=== PATIENT | female | born 1930 | race Caucasian/White ===

== ENCOUNTER 2016-09-14 12:43 | Emergency (ER) | payer MEDICARE, OTHER ==
--- NOTE | 2016-09-14 12:52 | EDM.PDOC ---
[id number] by Provider: 09/14/16 12:52 Source of Information: Reports: Patient, EMS History Limitations: Reports: No Limitations - History of Present Illness INITIAL COMMENTS - FREE TEXT/NARRATIVE: Edy 85 yo who was brought to the ER by EMS after she was found to have ^^ BP. Was found to have BP 222/113. She denied any symptoms and was wondering why she was brought to the ER. At baseline, she takes Amlodipine 5mg as well as 40 mg Lasix. She endorsed compliance with medications. Was brought to the ER for further evaluation. - Related Data Allergies Allergy/AdvReac Type Severity Reaction Status Date / Time No Known Allergies Allergy Verified 09/14/16 13:05 Home Meds: Home Meds Aspirin [Halfprin] 81 mg PO DAILY 09/14/16 [History] Furosemide [Lasix] 40 mg PO BID 09/14/16 [History] Losartan [Cozaar] 50 mg PO DAILY #30 tablet 09/14/16 [Rx] Potassium Chloride 10 meq PO DAILY 09/14/16 [History] Ranitidine HCl [Zantac] 150 mg PO BID 09/14/16 [History] Sotalol [Betapace] 80 mg PO BID 09/14/16 [History] amLODIPine [Norvasc] 5 mg PO DAILY #30 tab 09/14/16 [Rx] ED ROS GENERAL - Review of Systems Review Of Systems: ROS reveals no pertinent complaints other than HPI. ED EXAM, GENERAL - Physical Exam Exam: See Below Exam Limited By: No Limitations General Appearance: Alert, WD/WN, No Apparent Distress Eye Exam: Bilateral Eye: EOMI Nose: Normal Inspection, Normal Mucosa, No Blood Throat/Mouth: Normal Inspection, Normal Lips, Normal Teeth, Normal Gums, Normal Oropharynx Neck: Normal Inspection, Supple Respiratory/Chest: No Respiratory Distress, Lungs Clear, Normal Breath Sounds Cardiovascular: Normal Peripheral Pulses, Regular Rate, Rhythm, No JVD, No Murmur, Other (Bilateral Lower extremity edema) GI/Abdominal: Normal Bowel Sounds, Soft, Non-Tender, No Organomegaly, No Distention, No Abnormal Bruit Back Exam: Normal Inspection, Full Range of Motion Neurological: Alert, Oriented, CN II-XII Intact, Normal Cognition Psychiatric: Normal Affect, Normal Mood Skin Exam: Warm, Dry, Intact Course - Vital Signs Last Recorded V/S: Last Vital Signs Temp 36.6 C 09/14/16 14:26 Pulse 81 09/14/16 14:26 Resp 14 09/14/16 14:26 BP 143/62 H 09/14/16 14:50 Pulse Ox 98 09/14/16 14:26 - Orders/Labs/Meds Labs: Laboratory Tests 09/14/16 09/14/16 09/14/16 Range/Units 13:05 13:05 13:05 WBC 8.4 (4.5-12.0) X10-3/uL RBC 5.19 (3.23-5.20) x10(6)uL Hgb 15.4 (11.5-15.5) g/dL Hct 46.2 (30.0-51.3) % MCV 89.1 (80-96) fL MCH 29.7 (27.7-33.6) pg MCHC 33.4 (32.2-35.4) g/dL RDW 12.8 (11.5-15.5) % Plt Count 306 (125-369) X10(3)uL Sodium 139 (135-145) mmol/L Potassium 3.0 L (3.5-5.3) mmol/L Chloride 96 L (100-110) mmol/L Carbon Dioxide 33 H (23-29) mmol/L BUN 13 (8-23) mg/dL Creatinine 0.9 (0.6-1.3) mg/dL Est Cr Clr Drug Dosing 32.23 mL/min Estimated GFR (MDRD) 59 L (>60) BUN/Creatinine Ratio 14.4 (9-20) Glucose 130 H (80-116) mg/dL Calcium 9.7 (8.6-10.2) mg/dL Total Bilirubin 1.3 (0.1-1.3) mg/dL AST 24 (5-27) IU/L ALT 16 (14-26) IU/L Alkaline Phosphatase 102 (56-112) IU/L B-Natriuretic Peptide 249 H (0-100) pg/mL Total Protein 7.5 (6.0-8.0) g/dL Albumin 4.2 (3.2-4.6) g/dL Globulin 3.3 g/dL Albumin/Globulin Ratio 1.3 Meds: Medications Discontinued Medications Generic Name Dose Route Start Last Admin Trade Name Freq PRN Reason Stop Dose Admin Amlodipine Besylate 5 mg 09/14/16 14:44 09/14/16 14:50 Norvasc PO 09/14/16 14:45 5 mg ONETIME ONE Administration Hydralazine HCl 10 mg 09/14/16 12:54 09/14/16 13:06 Apresoline IVPUSH 09/14/16 12:55 10 mg ONETIME ONE Administration Losartan Potassium 50 mg 09/14/16 14:44 09/14/16 14:50 Cozaar PO 09/14/16 14:45 50 mg ONETIME ONE Administration Potassium Chloride 40 meq 09/14/16 13:48 09/14/16 14:11 Klor-Con M20 PO 09/14/16 13:49 40 meq ONETIME ONE Administration Sodium Chloride 10 ml 09/14/16 13:04 09/14/16 13:05 Saline Flush FLUSH 10 ml ASDIRECTED PRN Administration Keep Vein Open BP improved after IB Hydralazine. Found to have Hypokalemia -- 3.0 which was replaced. D/w Patients son (Physician in [place]) -- gave more hx. Patient was well controlled on Losartan and Amlodipine. Unsure why initial Home medication was discontinued. We agreed that she could go back temporarily on Losartan and Amlodipine. Discharged in stable condition. >>>Indications for emergent return were discussed and no Learning barriers encountered Departure - Departure Time of Disposition: 14:48 Disposition: Home, Self-Care 01 Condition: Good Clinical Impression: Hypertension - Discharge Information Prescriptions: Losartan [Cozaar] 50 mg PO DAILY #30 tablet amLODIPine [Norvasc] 5 mg PO DAILY #30 tab Instructions: Hypertension, [id number] Referrals: Kaz Roberts MD [Primary Care Provider] - Forms: ED Department Discharge Additional Instructions: Follow with PCP in 1-2 days for BP re evaluation and optimization of antihypertensives Return if symptoms worsen Call your Physician or Return to Emergency Department if: * Your condition worsens in any way. * You develop fever greater than 100.4. * You have vomitting that does not stop with medications. * You have pain that is not controlled with medications.
[2016-09-14] MEDS ORDERED: hydrALAZINE 20 MG/ML SDV IVPUSH ONE (12:54)
[2016-09-14] MEDS ORDERED: Sodium Chloride 0.9% 10 ML Syringe FLUSH PRN (13:04)
[2016-09-14 13:47] VITALS: BP 143/62
[2016-09-14] MEDS ORDERED: Potassium Chloride 20 MEQ Tab.ER PO ONE (13:48)
[2016-09-14] MEDS ORDERED: Losartan 50 MG Tab PO ONE (14:44)
[2016-09-14] MEDS ORDERED: amLODIPine 5 MG Tab PO ONE (14:44)
== END 2016-09-14 14:25 | disposition other institution (70) ==
LOC: FB.ED 12:43
DX: I10 Essential (primary) hypertension (principal); E87.6 Hypokalemia; Z79.82 Long term (current) use of aspirin; Z79.899 Other long term (current) drug therapy
CPT/HCPCS: 36415; 80053; 83880; 85027; 96374; 99283; A9270; J0360; J7050

== ENCOUNTER 2018-08-16 09:55 | Emergency (ER) | payer MEDICARE, OTHER ==
[2018-08-16] MEDS ORDERED: Sodium Chloride 0.9% 1,000 ML IV SCH (10:30)
--- NOTE | 2018-08-16 12:57 | EDM.PDOC ---
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 no fever no pain complaints no blood in stool no other associated sx or concerns. - Related Data Allergies Allergy/AdvReac Type Severity Reaction Status Date / Time No Known Allergies Allergy Verified 08/16/18 10:08 Home Meds: Home Meds Aspirin [Halfprin] 81 mg PO DAILY 09/14/16 [History] Furosemide [Lasix] 20 mg PO DAILY 09/14/16 [History] Potassium Chloride 10 meq PO DAILY 09/14/16 [History] Ranitidine HCl [Zantac] 150 mg PO DAILY 09/14/16 [History] Sotalol [Betapace] 80 mg PO BID 09/14/16 [History] amLODIPine [Norvasc] 5 mg PO DAILY #30 tab 09/14/16 [Rx] Calcium Carbonate/Vitamin D3 [Calcium 500 + Vit D 400] 1 each PO BID 08/16/18 [ History] Cholecalciferol (Vitamin D3) [Vitamin D3] 1,000 unit PO DAILY 08/16/18 [History] Cyanocobalamin (Vitamin B12) [Vitamin B12] 2,500 mcg PO DAILY 08/16/18 [History] Loperamide HCl [Loperamide] 2 mg PO ASDIRECTED 08/16/18 [History] Losartan [Cozaar] 100 mg PO DAILY 08/16/18 [History] Mirtazapine 7.5 mg PO BEDTIME 08/16/18 [History] Vit A/Vit C/Vit E/Zinc/Copper [Preservision] 1 tab PO DAILY 08/16/18 [History] guaiFENesin 10 ml PO ASDIRECTED 08/16/18 [History] Past Medical History HEENT History: Reports: Impaired Vision Other HEENT History: wears glasses Cardiovascular History: Reports: Afib, High Cholesterol, Hypertension Respiratory History: Reports: Other (See Below) Other Respiratory History: chronic cough Genitourinary History: Reports: Chronic Renal Insuffiency DEDICATED [employer] History: Reports: Psychiatric History: Reports: Dementia Dermatologic History: Reports: Other (See Below) Other Dermatologic History: basal cell ca leg - Infectious Disease History Infectious Disease History: Reports: Chicken Pox Social & Family History - Tobacco Use Smoking Status *Q: Never Smoker - Caffeine Use Caffeine Use: Reports: None ED ROS GENERAL - Review of Systems Review Of Systems: See Below Constitutional: Reports: Fatigue. Denies: Fever, Chills HEENT: Reports: No Symptoms Respiratory: Reports: No Symptoms Cardiovascular: Reports: No Symptoms GI/Abdominal: Reports: Diarrhea, Nausea. Denies: Vomiting : Reports: No Symptoms ED EXAM, GENERAL - Physical Exam Exam: See Below Exam Limited By: No Limitations General Appearance: Alert Nose: Normal Inspection Throat/Mouth: Normal Inspection Respiratory/Chest: No Respiratory Distress Cardiovascular: Normal Peripheral Pulses GI/Abdominal: Normal Bowel Sounds, Soft, Non-Tender Neurological: Alert, Normal Reflexes Course - Vital Signs Text/Narrative:: pt clinically has gastroenteritis with mild dehydration, her symptoms appear to be subsiding already, NO BM since arrival and we could not test for cdiff. pt had 1 letter of fluids over 2 hrs and stable for discharge. Last Recorded V/S: Last Vital Signs Temp 36.6 C 08/16/18 09:55 Pulse 81 08/16/18 12:20 Resp 17 08/16/18 09:55 BP 119/70 08/16/18 12:20 Pulse Ox 99 08/16/18 09:55 - Orders/Labs/Meds Orders: Active Orders 24 hr Category Date Time Status CDIFF TOXIN A+B GROUP [OP] Stat Lab 08/16/18 11:58 Ordered Sodium Chloride 0.9% [Normal Saline] 1,000 ml Med 08/16/18 10:30 Active IV ASDIRECTED Isolation [COMM] Stat Oth 08/16/18 10:30 Ordered Medication Orders Sodium Chloride (Normal Saline) 1,000 mls @ 500 mls/hr IV ASDIRECTED KAHLIL Last Admin: 08/16/18 10:51 Dose: 500 mls/hr Labs: Laboratory Tests 08/16/18 08/16/18 Range/Units 10:45 10:45 WBC 8.4 (4.5-12.0) X10-3/uL RBC 5.25 H (3.23-5.20) x10(6)uL Hgb 16.1 H (11.5-15.5) g/dL Hct 46.8 (30.0-51.3) % MCV 89.2 (80-96) fL MCH 30.6 (27.7-33.6) pg MCHC 34.3 (32.2-35.4) g/dL RDW 12.6 (11.5-15.5) % Plt Count 264 (125-369) X10(3)uL MPV 9.7 (7.4-10.4) fL Neut % (Auto) 66.3 (46-82) % Lymph % (Auto) 22.6 (13-37) % Garza % (Auto) 8.7 (4-12) % Eos % (Auto) 2 (1.0-5.0) % Baso % (Auto) 1 (0-2) % Neut # (Auto) 5.6 (1.6-8.3) # Lymph # (Auto) 1.9 (0.6-5.0) # Garza # (Auto) 0.7 (0.0-1.3) # Eos # (Auto) 0.1 (0.0-0.8) # Baso # (Auto) 0.1 (0.0-0.2) # Sodium 137 (135-145) mmol/L Potassium 3.2 L (3.5-5.3) mmol/L Chloride 100 (100-110) mmol/L Carbon Dioxide 23 (21-32) mmol/L BUN 38 H (7-18) mg/dL Creatinine 1.3 H (0.55-1.02) mg/dL Est Cr Clr Drug Dosing 23.66 mL/min Estimated GFR (MDRD) 39 L (>60) BUN/Creatinine Ratio 29.2 H (9-20) Glucose 90 (80-116) mg/dL Calcium 8.9 (8.6-10.2) mg/dL Total Bilirubin 0.9 (0.1-1.3) mg/dL AST 23 (5-25) IU/L ALT 25 (12-36) U/L Alkaline Phosphatase 117 H (56-112) IU/L Total Protein 6.7 (6.0-8.0) g/dL Albumin 3.6 (3.2-4.6) g/dL Globulin 3.1 g/dL Albumin/Globulin Ratio 1.2 Meds: Medications Generic Name Dose Route Start Last Admin Trade Name Leny PRN Reason Stop Dose Admin Sodium Chloride 1,000 mls @ 500 mls/hr 08/16/18 10:30 08/16/18 10:51 Normal Saline IV 500 mls/hr ASDIRECTED KAHLIL Administration Departure - Departure Time of Disposition: 12:55 Disposition: Home, Self-Care 01 Clinical Impression: Diarrhea - Discharge Information Referrals: Kaz Roberts MD [Primary Care Provider] - - Problem List & Annotations (1) Diarrhea SNOMED Code(s): 34517726 Code(s): R19.7 - DIARRHEA, UNSPECIFIED Status: Acute Current Visit: Yes - My Orders Last 24 Hours: My Active Orders 08/16/18 10:30 Sodium Chloride 0.9% [Normal Saline] 1,000 ml IV ASDIRECTED Isolation [COMM] Stat 08/16/18 11:58 CDIFF TOXIN A+B GROUP [OP] Stat - Assessment/Plan Last 24 Hours: My Active Orders 08/16/18 10:30 Sodium Chloride 0.9% [Normal Saline] 1,000 ml IV ASDIRECTED Isolation [COMM] Stat 08/16/18 11:58 CDIFF TOXIN A+B GROUP [OP] Stat
[2018-08-16 13:29] VITALS: BP 121/62
== END 2018-08-16 13:10 | disposition home or self-care (01) ==
LOC: FB.ED 09:55
DX: R19.7 Diarrhea, unspecified (principal); R11.0 Nausea; I10 Essential (primary) hypertension; E78.00 Pure hypercholesterolemia, unspecified; I48.91 Unspecified atrial fibrillation; Z79.82 Long term (current) use of aspirin; Z79.899 Other long term (current) drug therapy
CPT/HCPCS: 80053; 85025; 96360; 96361; 99284; J7030